=== PATIENT | male | born 1990 | race Hispanic/Latino ===

== ENCOUNTER 2024-04-01 20:02 | Emergency (ER) | payer OTHER ==
[~2024-04-01] VITALS: Ht 165.1 cm; Wt 87.7 kg
[2024-04-01] MEDS ORDERED: ondansetron HCL 4 MG/2 ML VIAL IV ONE (21:15)
[2024-04-01] MEDS ORDERED: hydrOXYzine pamoate 50 MG CAP PO ONE (21:15)
[2024-04-01 21:16] LABS: BILIRUBIN, URINE NEGATIVE (negative); BLOOD/HGB, URINE NEGATIVE (Negative); KETONE, URINE NEGATIVE (Negative); LEUK ESTERASE, URINE NEGATIVE (negative); NITRITE, URINE NEGATIVE (negative)
[2024-04-01 21:27] LABS: BASOPHILS 0.2 % (0-2); EOSINOPHILS 0.7 % (0-6); HEMOGLOBIN 15.2 g/dL (12.0-18.0); LYMPHOCYTES 13.5 % (24-44); MCH 30.9 (27-36); MCHC 35.4 g/dl (30-36); MCV 87.2 fl (81-99); MONOCYTES 6.1 % (0-12); NEUTROPHILS 79.5 % (39-80); PLATELET COUNT 216 K/uL (140-440); RBC 4.94 M/ul (4.3-5.7); RDW 13.9 (10.5-15.0)
[2024-04-01 21:28] LABS: AMPHETAMINES, URINE NEGATIVE (NEGATIVE); BARBITURATES, URINE NEGATIVE (NEGATIVE); BENZODIAZEPINE, URINE NEGATIVE (NEGATIVE); BUPRENORPHINE, URINE NEGATIVE (NEGATIVE); CANNABINOID, URINE NEGATIVE (NEGATIVE); COCAINE, URINE NEGATIVE (NEGATIVE); ECSTASY, URINE NEGATIVE (NEGATIVE); FENTANYL, URINE NEGATIVE (NEGATIVE); METHADONE, URINE NEGATIVE (NEGATIVE); OPIATES, URINE NEGATIVE (NEGATIVE); OXYCODONE, URINE NEGATIVE (NEGATIVE); PHENCYCLIDINE, URINE NEGATIVE (NEGATIVE)
[2024-04-01] MEDS ORDERED: FAMOTIDINE 20 MG/ 2 ML VIAL IV ONE (21:30)
[2024-04-01 21:53] LABS: ALBUMIN/GLOBULIN RATIO 1.05 (1.1-2.4); BILIRUBIN, TOTAL 0.6 ng/dL (0.2-1.0); BUN/CREATININE RATIO 7.96 (6.0-28.6); CALCIUM 9.8 mg/dL (8.5-10.1); CREATININE, SERUM 1.13 mg/dL (0.70-1.30); MAGNESIUM 1.7 mg/dL (1.8-2.4); PHOSPHORUS, INORGANIC 2.9 mg/dL (2.5-4.9); PROTEIN, TOTAL 7.8 g/dL (6.4-8.2); TSH, 3RD GENERATION 0.374 uIU/mL (0.358-3.740)
[2024-04-01] MEDS ORDERED: HYDROXYZINE HCL25 MG PO (22:28)
[2024-04-01] MEDS ORDERED: hydrOXYzine pamoate 50 MG HOME.PACK PO ONE (22:30)
[2024-04-01 22:40] VITALS: BP 122/80
--- NOTE | 2024-04-02 08:13 | EKG ---
[facility] [address] [facility] [place] [address] Signed Normal sinus rhythm with sinus arrhythmia Normal ECG No previous ECGs available Confirmed by Rao Werner MD () on 04/02/2024 8:13:04 AM Electronically Signed By: RAO WERNER MD 04/02/24812 PATIENT NAME: SHABBIR BRYANT SHAISTATJCm Electrocardiogram DATE OF : 89 PHYSICIAN: RAO WERNER MD REPORT #: [id number] REPORT IS CONFIDENTIAL AND NOT TO BE RELEASED WITHOUT AUTHORIZATION
== END 2024-04-01 22:40 | disposition home or self-care (01) ==
LOC: ED 20:02
PROVIDERS: Internal Medicine
DX: F41.0 Panic disorder [episodic paroxysmal anxiety] (principal); Z91.038 Other insect allergy status
CPT/HCPCS: 36415; 80053; 80307; 81003; 82553; 83735; 84100; 84443; 84484; 85025; 93005; 93010; 96374; 96375; 99284-25; J2405

== ENCOUNTER 2024-09-23 23:37 | Emergency (ER) | payer OTHER ==
[~2024-09-23] VITALS: Ht 165.1 cm; Wt 86.4 kg
[~2024-09-23 23:37] MED LIST: HYDROXYZINE HCL25 MG PO
[2024-09-24] MEDS ORDERED: ONDANSETRON ODT4 MG PO (00:09)
[2024-09-24] MEDS ORDERED: ondansetron HCL 4 MG/2 ML VIAL IV ONE (00:15)
[2024-09-24 00:22] LABS: BASOPHILS 0.2 % (0-2); EOSINOPHILS 0.7 % (0-6); HEMATOCRIT 48.2 % (35.0-50.0); HEMOGLOBIN 16.7 g/dL (12.0-18.0); LYMPHOCYTES 4.1 % (24-44); MCHC 34.7 g/dl (30-36); MCV 86.5 fl (81-99); MONOCYTES 5.1 % (0-12); NEUTROPHILS 89.9 % (39-80); PLATELET COUNT 239 K/uL (140-440); RBC 5.57 M/ul (4.3-5.7); RDW 14.1 (10.5-15.0)
[2024-09-24] MEDS ORDERED: LORazepam 2 MG/ML VIAL IV ONE (00:30)
[2024-09-24] MEDS ORDERED: FAMOTIDINE 20 MG/ 2 ML VIAL IV ONE (00:30)
[2024-09-24] MEDS ORDERED: LACTATED RINGER'S 1,000 ML IV ONE (00:30)
[2024-09-24 00:34] LABS: ALBUMIN 4.2 g/dL (3.4-5.0); ALBUMIN/GLOBULIN RATIO 1.05 (1.1-2.4); ANION GAP 13.1 (7-21); BILIRUBIN, TOTAL 0.7 mg/dL (0.2-1.0); BUN/CREATININE RATIO 13.88 (6.0-28.6); CALCIUM 9.2 mg/dL (8.5-10.1); CREATININE, SERUM 1.08 mg/dL (0.70-1.30); MAGNESIUM 1.8 mg/dL (1.8-2.4); POTASSIUM 4.1 mmol/L (3.5-5.1); PROTEIN, TOTAL 8.2 g/dL (6.4-8.2)
[2024-09-24 00:55] LABS: TSH, 3RD GENERATION 0.64 uIU/mL (0.358-3.740)
[2024-09-24 01:54] LABS: BILIRUBIN, URINE NEGATIVE (negative); BLOOD/HGB, URINE NEGATIVE (Negative); KETONE, URINE NEGATIVE (Negative); LEUK ESTERASE, URINE NEGATIVE (negative); NITRITE, URINE NEGATIVE (negative)
[2024-09-24 02:08] LABS: AMPHETAMINES, URINE NEGATIVE (NEGATIVE); BARBITURATES, URINE NEGATIVE (NEGATIVE); BENZODIAZEPINE, URINE NEGATIVE (NEGATIVE); BUPRENORPHINE, URINE NEGATIVE (NEGATIVE); CANNABINOID, URINE NEGATIVE (NEGATIVE); COCAINE, URINE NEGATIVE (NEGATIVE); ECSTASY, URINE NEGATIVE (NEGATIVE); FENTANYL, URINE NEGATIVE (NEGATIVE); METHADONE, URINE NEGATIVE (NEGATIVE); OPIATES, URINE NEGATIVE (NEGATIVE); OXYCODONE, URINE NEGATIVE (NEGATIVE); PHENCYCLIDINE, URINE NEGATIVE (NEGATIVE)
[2024-09-24] MEDS ORDERED: HYDROXYZINE HCL25 MG PO (02:54)
[2024-09-24 03:00] VITALS: BP 109/66
== END 2024-09-24 03:00 | disposition home or self-care (01) ==
LOC: ED 23:37
PROVIDERS: Internal Medicine
DX: E86.0 Dehydration (principal); F41.9 Anxiety disorder, unspecified; Z91.030 Bee allergy status; Z79.899 Other long term (current) drug therapy
CPT/HCPCS: 36415; 80053; 80307; 81003; 83690; 83735; 84443; 84484; 85025; 99284; J2060; J2405; J7121

== ENCOUNTER 2024-11-06 08:38 | Emergency (ER) | payer OTHER ==
[~2024-11-06] VITALS: Ht 165.1 cm; Wt 89.1 kg
[~2024-11-06 08:38] MED LIST changes: +ONDANSETRON ODT4 MG PO
[2024-11-06] MEDS ORDERED: LORazepam 1 MG TAB PO ONE (09:30)
[2024-11-06] MEDS ORDERED: ONDANSETRON 4 MG TAB ODT SL ONE (09:30)
[2024-11-06] MEDS ORDERED: ONDANSETRON ODT4 MG PO (12:03)
[2024-11-06 12:08] VITALS: BP 94/54
== END 2024-11-06 12:09 | disposition home or self-care (01) ==
LOC: ED 08:38
DX: F41.9 Anxiety disorder, unspecified (principal); Z91.030 Bee allergy status
CPT/HCPCS: 99283; A9270; A9270-GY